=== PATIENT | male | born 1950 | race Two or more races ===

== ENCOUNTER 2023-04-15 19:28 | Emergency (ER) | payer OTHER ==
[2023-04-15 19:52] VITALS: BP 123/59; PULSE 94; RESP 16; O2SAT 97
[2023-04-15] MEDS ORDERED: AMPICILLIN & SULBACTAM SODIUM 3 GM in SODIUM CHL 0.9% 100 ML IV ONE (20:00)
[2023-04-15] MEDS ORDERED: CLIN300C70 PO (20:05)
[2023-04-15] MEDS ORDERED: MUPI2OIN2 EX (20:05)
[2023-04-15] MEDS ORDERED: BACDST PO (20:05)
[2023-04-15] MEDS ORDERED: CLINDAMYCIN HCL 150 MG CAP PO ONE (22:15)
[2023-04-15] MEDS ORDERED: SULFAMETHOX W/TRIMETH(800/160MG) DS TAB PO ONE (22:15)
== END 2023-04-15 22:25 | disposition home or self-care (01) ==
LOC: ER 19:28
DX: S50.861A Insect bite (nonvenomous) of right forearm, initial encounter (principal); L03.113 Cellulitis of right upper limb; E11.65 Type 2 diabetes mellitus with hyperglycemia; I10 Essential (primary) hypertension; W57.XXXA Bitten or stung by nonvenomous insect and other nonvenomous arthropods, initial encounter; Y93.89 Activity, other specified; Y92.89 Other specified places as the place of occurrence of the external cause; Y99.8 Other external cause status
CPT/HCPCS: 82962